=== PATIENT | male | born 1945 | race Caucasian/White ===

== ENCOUNTER 2018-02-26 05:42 | Day surgery (SDC) | payer OTHER ==
[~2018-02-26] VITALS: Ht 180.3 cm; Wt 106.6 kg
--- NOTE | ~2018-02-26 | O ---
[facility] [place] [address] OPERATIVE REPORT Name: TRAVON LILLY Room #: 150-2 [facility]..#: [id number] Admission: 02/26/18 Attend Phys: Xavier Jose MD Discharge: Date of : 41 Report #: [id number] THIS REPORT FOR: //name// CC: RENNY Jose DATE OF SERVICE: 02/26/2018 SURGEON: Xavier Jose MD ROOF BOLTER OPERATOR: None. PREOPERATIVE DIAGNOSIS: Nasolacrimal duct obstruction, left sided POSTOPERATIVE DIAGNOSIS: Nasolacrimal duct obstruction, left sided OPERATIONS PERFORMED: 1. Incisional dacryocystorhinostomy. 2. Nasal surgical video endoscopy. 3. Silicone intubation. ANESTHESIA: General. COMPLICATIONS: None. INDICATIONS FOR PROCEDURE: This patient has an acquired nasolacrimal duct obstruction with chronic tearing and discharge. The current procedures are undertaken in order to improve the patient's level of comfort and visual clarity and to reduce the risk of recurrent infection. Informed consent was obtained to include but not limited to the potential risk for loss of vision, bleeding, infection, failure to improve the problem, scarring and the potential need for further surgery. DESCRIPTION OF OPERATION: The patient was taken to the operating room, where general anesthesia was administered. The medial canthal area was then generously infiltrated with 2% Xylocaine with epinephrine mixed with equal parts of 0.75% Marcaine with Wydase. The same anesthetic mixture was then used to anesthetize the lateral wall of the nose. The middle meatus was then packed with Afrin-soaked Cottonoids. The patient was subsequently prepped and draped in the usual sterile fashion. A skin-marking pen was then used to outline an incision over the anterior lacrimal crest inferiorly in the medial canthal area. The incision was then [facility] [address] [place] [address] OPERATIVE REPORT Name: TRAVON LILLY Room #: 150-2 [facility]..#: [id number] Admission: 02/26/18 Attend Phys: Xavier Jose MD Discharge: Date of : 41 Report #: [id number] made with a 15 blade. The dissection was then carried down through the soft tissue until the periosteum was identified. Hemostasis was achieved with diligent monopolar cautery. The periosteum was then incised over the anterior lacrimal crest and then gently reflected laterally out of the lacrimal sac fossa. The lacrimal sac was retracted and the thin bone of the lacrimal sac fossa was gently infractured with a hemostat. Multiple rongeur bites were then used to create an osteotomy that was approximately 1.5 cm in diameter. The nasal mucosa was then injected with the same anesthetic mixture used at the beginning of the case. The nasal mucosa was then incised and an anteriorly hinged nasal mucosal flap made. The flap was drawn out of the field with interrupted 4-0 chromic sutures. The puncta were then dilated with a double-ended punctum dilator. Porter tubes were then passed into the lacrimal sac and its margins were identified. A large anteriorly hinged lacrimal sac flap was subsequently created. The Porter tubes were passed into the nose on a groove director transnasally. The anterior lacrimal sac flaps and nasal mucosal flaps were closed with interrupted 4-0 chromic sutures. The nasal surgical video endoscope was then brought into the field. The ostium was inspected and found to not be obstructed by the middle turbinate. The ostium was anterior and inferior to the root of the turbinate. There was no evidence of any septal obstruction of the newly created ostium. The subcutaneous structures around the wound were then closed with multiple interrupted 4-0 chromic sutures. The skin was closed with interrupted 6-0 plain gut sutures. The Porter tubes were then secured to themselves with 3 square throws. The Porter tubes were then secured to the lateral wall of the nose with a 5-0 Prolene suture. Antibiotic steroid drops were then placed on the surface of the eye and an antibiotic ointment on the incision. Two eye pads were then taped in place. The patient was transported to the recovery area, having tolerated the procedure well with no anesthetic or operative complications being noted. By: [id number] Xavier Jose MD /nt
[~2018-02-26 05:42] MED LIST: ARTIFICIAL TEAR15 ML OPHTHALMIC; COUMADIN 5 MG TA5 M1 PO; COUMADIN6 MG PO; FOLIC ACID0.8 M1 PO; LISINOPRIL5 MG PO; METFORMIN HCL500 MG PO; SIMVASTATIN40 MG PO; VITAMIN B-650 M1 PO; VITAMIN B12-FO1 EAC1 PO; VITAMIN D1000 UNI2 PO
[2018-02-26 13:15] VITALS: BP 153/99
[2018-02-26 13:28] LABS: INR 1.1; PROTIME 11.3 Seconds (9.3-11.4)
== END 2018-02-26 16:16 | disposition home or self-care (01) ==
LOC: OR 05:42 → TBA 05:42 → OR 13:07
PROVIDERS: Ophthalmology
DX: H04.552 Acquired stenosis of left nasolacrimal duct (principal); I10 Essential (primary) hypertension; E11.9 Type 2 diabetes mellitus without complications; E78.5 Hyperlipidemia, unspecified; Z98.41 Cataract extraction status, right eye; Z98.42 Cataract extraction status, left eye; Z87.442 Personal history of urinary calculi; Z98.890 Other specified postprocedural states; Z79.899 Other long term (current) drug therapy
CPT/HCPCS: 50010; 50101; 50386; 50398; 51636; 51777; 56528; 56531; 62110; 62900; 64037; 70005

== ENCOUNTER 2020-01-30 06:25 | Day surgery (SDC) | payer OTHER ==
[~2020-01-30] VITALS: Ht 180.3 cm; Wt 99.3 kg
[~2020-01-30 06:25] MED LIST changes: +FINASTERIDE5 MG PO; +FOLIC ACID0.4 MG PO; +GLUCOPHAGE1000 MG PO; +VITAMIN B122500 MCG PO; -VITAMIN D1000 UNI2 PO; +VITAMIN D350 MC2 PO; +WARFARIN SODIUM3 MG PO
[2020-01-30 07:00] VITALS: BP 158/86
[2020-01-30 07:10] LABS: PROTIME 10.7 Seconds (9.3-11.4)
--- NOTE | 2020-02-03 06:20 | O ---
[address] [place] [address] OPERATIVE REPORT Name: TRAVON LILLY Room #: DEP [facility]..#: [id number] Admission: 01/30/20 Attend Phys: Xavier Jose MD Discharge: 01/30/20 Date of : 41 Report #: [id number] THIS REPORT FOR: cc: Landon Vang MD, Timothy J. MD White,Xavier Charles MD ~ CC: RENNY Jose DATE OF SERVICE: 01/30/2020 PREOPERATIVE DIAGNOSIS: Recurrent left nasolacrimal duct obstruction. POSTOPERATIVE DIAGNOSIS: Recurrent left nasolacrimal duct obstruction. PROCEDURE: Left endoscopic dacryocystorhinostomy with silicone intubation. SURGEON: Xavier Jose MD. FENDER REPAIRER: None. ANESTHESIA: General. COMPLICATIONS: None. INDICATIONS FOR SURGERY: This pleasant 74-year-old gentleman has experienced a recurrent obstruction of his left lacrimal outflow tract with chronic tearing and discharge from that side. He presents today for an endoscopic dacryocystorhinostomy to be done via balloon with silicone intubation. Informed consent was obtained to include but not limited to potential risk for loss of vision, bleeding, infection, failure to improve the problem, the potential need for further surgery or treatment. DESCRIPTION OF PROCEDURE: The patient was taken to the operating room where general anesthesia was administered. The left medial canthal area and the left lateral wall of the nose were then generously infiltrated with Xylocaine with epinephrine mixed with equal parts of 0.75% Marcaine with Wydase. Afrin-soaked cottonoids were then placed on the left side of the nose. The patient was then prepped and draped in the usual sterile fashion. The cottonoids were removed from the nose and the lateral nasal wall and the area of the presumed ostium was then injected with the same anesthetic mixture used at beginning of the case utilizing the video endoscope. The superior and inferior puncta were then dilated with a double-ended punctum dilator. A size 4 Peguero probe was then passed through the superior canaliculus down the proposed new ostium utilizing a [facility] [address] [place] [address] OPERATIVE REPORT Name: TRAVON LILLY Room #: [facility]P [facility].#: [id number] Admission: 01/30/20 Attend Phys: Xavier Jose MD Discharge: 01/30/20 Date of : 41 Report #: [id number] stainless steel device. The lateral nasal wall was then honeycombed in the area of the prior ostium from his incisional DCR. The honeycomb was then coalesced into one large orifice. The Porter tube was removed and a 5 mm x 8 mm LacriCatheter was then lubricated and passed through the superior canalicular system down into the nasal vault. It was confirmed video endoscopically to be in the correct location. The balloon was then inflated to 9 atmospheres for 90 seconds for 6 different inflation cycles ensuring that the entire tract was dilated. The balloon was then vigorously aspirated as it was withdrawn. The tract was then irrigated with saline and irrigated quite well. Porter tubes were then passed through the superior and inferior canaliculus and into the newly created ostium. They were retrieved video endoscopically with a Porter hook in the nose. The tubes were then secured to themselves with 3 square throws and subsequently to the lateral wall of the nose with one 5-0 Prolene suture. Maxitrol drops were then placed on the eye and the patient was subsequently transported to the recovery area having tolerated the procedure well with no anesthetic or operative complications being noted. <ELECTRONICALLY SIGNED> By: Xavier Jose MD 02/03/2020 [id number] Xavier Jose MD /nt
== END 2020-01-30 09:20 | disposition home or self-care (01) ==
LOC: OR 06:25 → TBA 06:32 → OR 09:20
PROVIDERS: ATTEND Ophthalmology
DX: H04.552 Acquired stenosis of left nasolacrimal duct (principal); I10 Essential (primary) hypertension; E11.9 Type 2 diabetes mellitus without complications; E78.5 Hyperlipidemia, unspecified; Z87.442 Personal history of urinary calculi; Z98.42 Cataract extraction status, left eye; Z96.1 Presence of intraocular lens; Z98.890 Other specified postprocedural states; Z79.899 Other long term (current) drug therapy; Z11.59 Encounter for screening for other viral diseases
CPT/HCPCS: 50010; 50101; 50386; 50398; 51777; 55343; 56528; 62110; 62900; 64037; 70005